=== PATIENT | male | born 2000 | race Caucasian/White ===

== ENCOUNTER 2021-11-17 21:20 | Inpatient (IN) ==
[2021-11-17] MEDS ORDERED: Ondansetron ODT 4 MG TAB.RAPDIS SL ONE (22:09)
[2021-11-17] MEDS ORDERED: Ketorolac 30 MG/ML VIAL IVP ONE (22:09)
[2021-11-17] MEDS ORDERED: 0.9 % Sodium Chloride 1,000 ML IVC ONE (22:09)
[2021-11-17 22:35] LABS: Basophils # 0.1 K/mcL (0.0-0.2); Basophils % 0.9 %; Eosinophils # 0.3 K/mcL (0.0-0.6); Hematocrit 50.1 % (37.5-50.1); Hemoglobin 17.5 g/dL (12.9-16.9); Immature Granulocytes % 0.1 % (0-4); Lymphocytes # 2.4 K/mcL (0.6-4.6); Mean Corpuscular HGB Conc 34.9 g/dL (31.6-35.5); Mean Corpuscular Volume 85.8 fL (83.0-100.0); Mean Platelet Volume 11.1 fL (9.4-12.4); Monocytes # 0.6 K/mcL (0.0-1.3); Monocytes % 7.8 %; Neutrophils # 4.1 K/mcL (1.6-8.9); Platelet Count 216 K/mcL (140-400); Red Blood Count 5.84 M/mcL (4.19-5.50); Red Cell Distribution Width 12.8 % (11.5-14.5); Segmented Neutrophils % 55.2 %; White Blood Count 7.5 K/mcL (4.3-11.1)
[2021-11-17 22:52] LABS: Amorphous Sediment,Urine Few per hpf (None-Few); Bacteria,Urine Few per hpf (None-Few); Bilirubin,Urine Small (Negative); Blood,Urine Negative (Negative); Clarity,Urine Turbid (Clear); Color,Urine Yellow (Yellow); Glucose,Urine (UA) Normal (Normal); Ketones,Urine Negative (Negative); Leukocyte Esterase,Urine Negative (Negative); Mucus,Urine Few per lpf (None-Few); Nitrite,Urine Negative (Negative); Protein,Urine Trace mg/dL (Neg-Trace); Specific Gravity,Urine 1.025 (1.010-1.025); Squamous Epithelial Cell,Urine Few per hpf (None-Few); Urobilinogen,Urine >=8.0 mg/dL (Normal)
[2021-11-17 22:55] LABS: Alanine Aminotransferase 425 Units/L (7-52); Albumin 4.3 g/dL (3.5-5.7); Albumin/Globulin Ratio 1.7 (1.1-2.2); Alkaline Phosphatase 86 Units/L (34-104); Aspartate Amino Transferase 248 Units/L (13-39); BUN/Creatinine Ratio 8 (6-26); Bilirubin,Indirect 1.1 mg/dL (0.0-1.0); Bilirubin,Total 3.1 mg/dL (0.3-1.0); Blood Urea Nitrogen 7 mg/dL (6-20); Calcium 9.5 mg/dL (8.6-10.3); Carbon Dioxide 27 mEq/L (23-29); Chloride 103 mEq/L (98-107); Globulin 2.6 g/dL (2.4-3.5); Glucose 98 mg/dL (70-105); Lipase 12 Units/L (11-82); Osmolality,Calculated 284 (280-300); Potassium 4.2 mEq/L (3.5-5.1); Sodium 138 mEq/L (136-145); Total Protein 6.9 g/dL (6.4-8.9); eGFR For African Americans > 60 (> 60); eGFR For Non-African Americans > 60 (> 60)
[2021-11-17] MEDS ORDERED: Isovue-370 500 ML BOTTLE IVP ONE (23:06)
[2021-11-17 23:31] LABS: Amphetamine Screen,Urine Negative ng/mL (Cutoff=1000); Barbiturate Screen,Urine Negative ng/mL (Cutoff=200); Benzodiazepines Screen,Urine Negative ng/mL (Cutoff=200); Cannabinoid Screen,Urine Positive ng/mL (Cutoff = 50); Cocaine Screen,Urine Negative ng/mL (Cutoff= 300); Opiate Screen,Urine Negative ng/mL (Cutoff=300); Phencyclidine Screen,Urine Negative ng/mL (Cutoff=25)
[2021-11-18] MEDS ORDERED: Naloxone 0.4 MG/ML INJ IVP PRN (00:37)
[2021-11-18] MEDS ORDERED: Ondansetron ODT 4 MG TAB.RAPDIS SL PRN (00:37)
[2021-11-18] MEDS ORDERED: Melatonin 3 MG TABLET PO PRN (00:37)
[2021-11-18] MEDS ORDERED: 0.9 % Sodium Chloride 1,000 ML IVC SCH (01:00)
[2021-11-18] MEDS ORDERED: Ibuprofen 400 MG TABLET PO PRN (01:59)
[2021-11-18 03:22] LABS: Acetaminophen < 10 mcg/mL (10-20); Ethanol < 10 mg/dL (Less than 10)
[2021-11-18 06:25] LABS: Hematocrit 46.9 % (37.5-50.1); Hemoglobin 16.2 g/dL (12.9-16.9); Mean Corpuscular HGB Conc 34.5 g/dL (31.6-35.5); Mean Corpuscular Hemoglobin 30.5 pg (28.0-33.3); Mean Corpuscular Volume 88.2 fL (83.0-100.0); Mean Platelet Volume 11.6 fL (9.4-12.4); Platelet Count 194 K/mcL (140-400); Red Blood Count 5.32 M/mcL (4.19-5.50); White Blood Count 6.7 K/mcL (4.3-11.1)
[2021-11-18 06:33] LABS: INR 1.1; Prothrombin Time 12.3 Seconds (9.4-12.1)
[2021-11-18 08:03] LABS: Alanine Aminotransferase 416 Units/L (7-52); Albumin 4.1 g/dL (3.5-5.7); Albumin/Globulin Ratio 2.2 (1.1-2.2); Alkaline Phosphatase 90 Units/L (34-104); Aspartate Amino Transferase 216 Units/L (13-39); BUN/Creatinine Ratio 7 (6-26); Bilirubin,Total 3.8 mg/dL (0.3-1.0); Blood Urea Nitrogen 7 mg/dL (6-20); Calcium 9.1 mg/dL (8.6-10.3); Carbon Dioxide 25 mEq/L (23-29); Chloride 106 mEq/L (98-107); Globulin 1.9 g/dL (2.4-3.5); Glucose 103 mg/dL (70-105); Osmolality,Calculated 288 (280-300); Phosphorous 4.8 mg/dL (2.7-4.5); Potassium 3.9 mEq/L (3.5-5.1); Sodium 140 mEq/L (136-145); eGFR For African Americans > 60 (> 60); eGFR For Non-African Americans > 60 (> 60)
[2021-11-18] MEDS: 0.9 % Sodium Chloride 1,000 ML IVC SCH ×2 (13:55→23:24)
[2021-11-19 05:30] LABS: Basophils # 0.1 K/mcL (0.0-0.2); Basophils % 0.7 %; Eosinophils # 0.3 K/mcL (0.0-0.6); Eosinophils % 4.8 %; Hematocrit 45.1 % (37.5-50.1); Hemoglobin 15.3 g/dL (12.9-16.9); Immature Granulocytes % 0.1 % (0-4); Lymphocytes # 2.6 K/mcL (0.6-4.6); Lymphocytes % 38.2 %; Mean Corpuscular HGB Conc 33.9 g/dL (31.6-35.5); Mean Corpuscular Hemoglobin 30.1 pg (28.0-33.3); Mean Corpuscular Volume 88.6 fL (83.0-100.0); Mean Platelet Volume 11.7 fL (9.4-12.4); Monocytes # 0.5 K/mcL (0.0-1.3); Monocytes % 7.3 %; Neutrophils # 3.3 K/mcL (1.6-8.9); Platelet Count 178 K/mcL (140-400); Red Blood Count 5.09 M/mcL (4.19-5.50); Red Cell Distribution Width 12.9 % (11.5-14.5); Segmented Neutrophils % 48.9 %; White Blood Count 6.8 K/mcL (4.3-11.1)
[2021-11-19 05:51] LABS: Alanine Aminotransferase 321 Units/L (7-52); Albumin 3.7 g/dL (3.5-5.7); Alkaline Phosphatase 85 Units/L (34-104); Aspartate Amino Transferase 106 Units/L (13-39); BUN/Creatinine Ratio 7 (6-26); Bilirubin,Total 4.7 mg/dL (0.3-1.0); Blood Urea Nitrogen 7 mg/dL (6-20); Calcium 8.6 mg/dL (8.6-10.3); Carbon Dioxide 25 mEq/L (23-29); Chloride 105 mEq/L (98-107); Glucose 82 mg/dL (70-105); Osmolality,Calculated 283 (280-300); Sodium 138 mEq/L (136-145); eGFR For African Americans > 60 (> 60); eGFR For Non-African Americans > 60 (> 60)
[2021-11-19 05:52] LABS: Albumin/Globulin Ratio 1.9 (1.1-2.2); Globulin 1.9 g/dL (2.4-3.5); Total Protein 5.6 g/dL (6.4-8.9)
[2021-11-19] MEDS: 0.9 % Sodium Chloride 1,000 ML IVC SCH (09:43)
[2021-11-19] MEDS ORDERED: Ondansetron 4 MG/2 ML VIAL IVP PRN (09:55)
[2021-11-19] MEDS ORDERED: *HR* HYDROmorphone PF 0.5 MG/0.5 ML SYRINGE IVP PRN (09:55)
[2021-11-19] MEDS ORDERED: Promethazine 6.25 MG in Water for inj. (sterile) 20 ML IVPB PRN (09:55)
[2021-11-19] MEDS ORDERED: *HR* OxyCODONE Immed Rel 5 MG TABLET PO PRN (09:55)
[2021-11-19] MEDS ORDERED: Indomethacin 50 MG SUPP.RECT RC ONE (15:26)
[2021-11-19] MEDS ORDERED: Ringers Solution, Lactated 1,000 ML IVC SCH (15:30)
[2021-11-19] MEDS ORDERED: *HR* FentaNYL (PF) 100 MCG/2 ML VIAL ONE ×2 (15:31→15:54)
[2021-11-19] MEDS ORDERED: *HR* Propofol 200 MG/20 ML VIAL IVP ONE (15:32)
[2021-11-19] MEDS ORDERED: Lidocaine -MPF 2% 5 ML VIAL ONE ×2 (15:33→15:36)
[2021-11-19] MEDS ORDERED: *HR* Succinylcholine 200 MG/10 ML VIAL IVP ONE (15:33)
[2021-11-19] MEDS ORDERED: Ondansetron 4 MG/2 ML VIAL ONE (15:47)
[2021-11-19] MEDS ORDERED: *HR* Labetalol 20 MG/4 ML SYRINGE IVP ONE (16:02)
[2021-11-19] MEDS: Ringers Solution, Lactated 1,000 ML IVC SCH (18:45)
[2021-11-19] MEDS ORDERED: Chloraseptic Spray 177 ML BOTTLE MM PRN (21:44)
[2021-11-20] MEDS: Ringers Solution, Lactated 1,000 ML IVC SCH ×2 (01:48→11:11)
[2021-11-20 05:59] LABS: Alanine Aminotransferase 266 Units/L (7-52); Albumin/Globulin Ratio 1.9 (1.1-2.2); Alkaline Phosphatase 88 Units/L (34-104); Aspartate Amino Transferase 65 Units/L (13-39); BUN/Creatinine Ratio 10 (6-26); Bilirubin,Total 2.1 mg/dL (0.3-1.0); Blood Urea Nitrogen 9 mg/dL (6-20); Calcium 9.3 mg/dL (8.6-10.3); Carbon Dioxide 24 mEq/L (23-29); Chloride 99 mEq/L (98-107); Globulin 2.1 g/dL (2.4-3.5); Glucose 96 mg/dL (70-105); Osmolality,Calculated 281 (280-300); Potassium 4.1 mEq/L (3.5-5.1); Sodium 136 mEq/L (136-145); Total Protein 6.1 g/dL (6.4-8.9); eGFR For African Americans > 60 (> 60); eGFR For Non-African Americans > 60 (> 60)
[2021-11-20] MEDS ORDERED: *HR* Propofol 200 MG/20 ML VIAL IVP ONE (16:32)
[2021-11-20] MEDS ORDERED: *HR* Midazolam HCl 2 MG/2 ML VIAL ONE (16:32)
[2021-11-20] MEDS ORDERED: Ondansetron 4 MG/2 ML VIAL ONE (16:32)
[2021-11-20] MEDS ORDERED: *HR* FentaNYL (PF) 100 MCG/2 ML VIAL ONE (16:32)
[2021-11-20] MEDS ORDERED: Lidocaine -MPF 4% 5 ML AMPUL ONE (16:32)
[2021-11-20] MEDS ORDERED: *HR* Succinylcholine 200 MG/10 ML VIAL IVP ONE (16:32)
[2021-11-20] MEDS ORDERED: Lidocaine -MPF 2% 2 ML VIAL ONE (16:33)
[2021-11-20] MEDS ORDERED: Ondansetron 4 MG/2 ML VIAL IVP PRN ×2 (16:53→21:08)
[2021-11-20] MEDS ORDERED: *HR* FentaNYL (PF) 100 MCG/2 ML VIAL IVP PRN (16:53)
[2021-11-20] MEDS ORDERED: *HR* HYDROmorphone PF 0.5 MG/0.5 ML SYRINGE IVP PRN (16:53)
[2021-11-20] MEDS ORDERED: Acetaminophen IV 1,000 MG/100 ML BAG IVPB ONE ×2 (16:56→16:57)
[2021-11-20] MEDS ORDERED: *HR* HYDROMORPHONE 2 MG/ML VIAL ONE (17:21)
[2021-11-20] MEDS ORDERED: CefOXitin 2,000 MG VIAL ONE (17:23)
[2021-11-20] MEDS ORDERED: *HR* Rocuronium Bromide 50 MG/5 ML VIAL ONE (17:51)
[2021-11-20] MEDS ORDERED: Melatonin 3 MG TABLET PO PRN (21:08)
[2021-11-20] MEDS ORDERED: Ondansetron ODT 4 MG TAB.RAPDIS SL PRN (21:08)
[2021-11-20] MEDS ORDERED: Ringers Solution, Lactated 1,000 ML IVC SCH (21:08)
[2021-11-20] MEDS ORDERED: Naloxone 0.4 MG/ML INJ IVP PRN (21:08)
[2021-11-20] MEDS ORDERED: Ibuprofen 400 MG TABLET PO PRN (21:08)
[2021-11-20] MEDS: Piperacillin/Tazobactam 3.375 GM in 0.9 % Sodium Chloride Mini Bag 100 ML IVPB SCH (21:49)
[2021-11-21] MEDS: Piperacillin/Tazobactam 3.375 GM in 0.9 % Sodium Chloride Mini Bag 100 ML IVPB SCH ×2 (04:26→13:30)
[2021-11-21] MEDS ORDERED: lisinopriL 20 MG TABLET PO SCH (09:00)
[2021-11-21 10:57] VITALS: BP 95/61; PULSE 61; TEMP 97.7; O2SAT 95
[2021-11-21] MEDS ORDERED: FLU Vac QV 21-22 (6Month+)/PF 0.5 ML SYRINGE IM ONE (12:07)
== END 2021-11-21 13:33 | disposition home or self-care (01) | DRG 263 ==
LOC: 3ANU 21:20 → EMEROOARM 21:20 → 3ANU 11-18 01:11
PROVIDERS: ADMIT Internal Medicine; ATTEND Internal Medicine